=== PATIENT | female | born 1970 | race African-American/Black ===

== ENCOUNTER 2025-09-14 11:48 | Outpatient (CLI) | payer BC, OTHER | END 2025-09-14 11:49 | disposition home or self-care (01) | LOC: CSHMAMMO 11:48 | PROVIDERS: ATTEND Student in an Organized Health Care Education/Training Program | DX: Z12.31 Encounter for screening mammogram for malignant neoplasm of breast (principal) | CPT/HCPCS: 77063; 77067 ==